=== PATIENT | male | born 1955 ===

== ENCOUNTER 2024-10-28 16:07 | Inpatient (IN) | payer BC, MEDICARE, MEDICAID ==
[~2024-10-28] VITALS: Ht 172.7 cm; Wt 78.0 kg
[2024-10-28 16:10] VITALS: BP 144/96
[2024-10-28] MEDS ORDERED: METOPROLOL (16:27)
[2024-10-28] MEDS: IV NORMAL SALINE 1000 ML BAG IV ONE (17:05)
[2024-10-28] MEDS: IV NS 1000 ML 1,000 ML IV ONE (17:06)
[2024-10-28] MEDS: MAGNESIUM SULFATE 2 GM in IV DEXTROSE 5% 100 ML IV ONE (17:07)
[2024-10-28] MEDS: ASPIRIN 81 MG TAB.CHEW PO ONE (17:07)
[2024-10-28 17:08] LABS: PLATELET COUNT (AUTO) 215 K/uL (152-348); RED BLOOD CELL COUNT(AUTO) 5.04 MIL/uL (4.06-5.63); RED CELL DISTRIBUTION WIDTH 12.3 % (12.1-16.2); WHITE BLOOD COUNT (AUTO) 5.6 K/uL (3.6-10.2)
[2024-10-28] MEDS ORDERED: MAGNESIUM SULFATE 1 GM/2 ML VIAL ONE (17:08)
[2024-10-28] MEDS ORDERED: ASPIRIN 81 MG TAB.CHEW ONE (17:08)
[2024-10-28] MEDS ORDERED: ENOXAPARIN SODIUM 80 MG/0.8 ML DISP.SYRIN SQ ONE (17:09)
[2024-10-28] MEDS: ENOXAPARIN SODIUM 30 MG/0.3 ML DISP.SYRIN SUBCUT ONE (17:17)
[2024-10-28 17:23] LABS: CREATININE 1.7 mg/dL (0.6-1.3); SODIUM SERUM 132 mmol/L (136-145); UREA NITROGEN, BLOOD 30 mg/dL (7-18)
[2024-10-28 17:27] LABS: ASPARTATE AMINOTRANSFERASE 16 U/L (15-37); TOTAL PROTEIN, SERUM 7.9 g/dL (6.4-8.2)
[2024-10-28] MEDS ORDERED: INSULIN REGULAR, HUMAN 1000 UNIT/10 ML VIAL ONE (21:26)
[2024-10-28] MEDS: INSULIN REGULAR, HUMAN 100 UNITS in IV NORMAL SALINE 100 ML IV ONE (21:44)
[2024-10-29] MEDS ORDERED: ACETAMINOPHEN 325 MG TABLET PO PRN (01:15)
[2024-10-29] MEDS ORDERED: REMEDY ESSENTIAL ZINC PASTE 113 GM TP PRN (01:15)
[2024-10-29] MEDS ORDERED: DEXTROSE 50% 50 ML DISP.SYRIN IV PRN (01:15)
[2024-10-29] MEDS ORDERED: ONDANSETRON 4 MG/2 ML VIAL IV PRN (01:15)
[2024-10-29] MEDS: ENOXAPARIN SODIUM 40 MG/0.4 ML DISP.SYRIN SQ SCH (02:13)
[2024-10-29 02:18] VITALS: BP 119/80; TEMP 97.6; O2SAT 97
[2024-10-29 04:13] VITALS: BP 122/78; TEMP 98; O2SAT 94
[2024-10-29 04:14] LABS: ABG BASE EXCESS -1.3 mmol/L (-2.0-3.0); ABG HCO3 23.1 mmol/L (21.0-28.0); ABG PCO2 38.0 mmHg (35.0-48.0); ABG PH 7.402 (7.350-7.450); ABG PO2 66.1 mmHg (83.0-108.0); ABG SITE LEFT RADIAL; ABG TOTAL HEMOGLOBIN 15.0 G/dL (13.5-17.5); AaDO2 93.2 mmHg; FIO2 21.0 %; FLOW, BLOOD GAS 0.00 L/min (0.00-30.00)
[2024-10-29 06:21] LABS: PLATELET COUNT (AUTO) 202 K/uL (152-348); RED BLOOD CELL COUNT(AUTO) 5.06 MIL/uL (4.06-5.63); RED CELL DISTRIBUTION WIDTH 12.3 % (12.1-16.2); WHITE BLOOD COUNT (AUTO) 6.9 K/uL (3.6-10.2)
[2024-10-29] MEDS: PANTOPRAZOLE SODIUM 40 MG TABLET.DR PO SCH (06:22)
[2024-10-29] MEDS: BLOOD SUGAR DIAGNOSTIC 1 EACH STRIP VI SCH (06:23)
[2024-10-29 07:08] LABS: CREATININE 1.6 mg/dL (0.6-1.3); SODIUM SERUM 134.0 mmol/L (136-145); UREA NITROGEN, BLOOD 27.0 mg/dL (7-18)
[2024-10-29 07:40] VITALS: BP 127/78; TEMP 98; O2SAT 94
[2024-10-29] MEDS: INSULIN REGULAR, HUMAN 1000 UNIT/10 ML VIAL SQ PRN (08:18)
[2024-10-29 11:07] LABS: *BILIRUBIN,URIN NEGATIVE (NEGATIVE); *CLARITY,URINE CLEAR (CLEAR); *COLOR,URINE YELLOW (YELLOW); *KETONES,URINE NEGATIVE (NEGATIVE); *PROTEIN,URINE TRACE (NEGATIVE); *UROBILINOGEN,URINE 0.2 E.U./dl (NORMAL); LEUKOCYTE ESTERASE ,URINE NEGATIVE (NEGATIVE); NITRITE, URINE NEGATIVE (NEGATIVE)
[2024-10-29 11:18] LABS: *CREATININE,URINE 77.0 mg/dL (30-125); *SODIUM RNDM,URINE 47.0 mmol/L (40-220); *URINE TOTAL PROTEIN RANDOM 24.9 mg/dL (<150/24HR)
[2024-10-29 11:27] LABS: *BLOOD, URINE TRACE (NEGATIVE); UGLUCOSE 3+ (NEGATIVE)
[2024-10-29] MEDS ORDERED: LISI-782 PO (11:33)
[2024-10-29] MEDS ORDERED: AMLO10TA59 PO (11:34)
[2024-10-29] MEDS ORDERED: METO-356 PO (11:35)
[2024-10-29] MEDS ORDERED: APIX5TAB PO (11:35)
[2024-10-29] MEDS ORDERED: ATOR80TA PO (11:36)
[2024-10-29 11:44] VITALS: BP 115/79; TEMP 97.9; O2SAT 98
[2024-10-29 15:59] VITALS: BP 131/70; TEMP 97.8; O2SAT 97
[2024-10-29] MEDS: APIXABAN 5 MG TABLET PO SCH (17:11)
[2024-10-29] MEDS: ATORVASTATIN 40 MG TABLET PO SCH (20:29)
[2024-10-30 00:27] VITALS: BP 114/79; TEMP 98.3; O2SAT 97
[2024-10-30 04:36] VITALS: BP 140/49; TEMP 97.6; O2SAT 96
[2024-10-30 06:45] LABS: PLATELET COUNT (AUTO) 222 K/uL (152-348); RED BLOOD CELL COUNT(AUTO) 5.28 MIL/uL (4.06-5.63); RED CELL DISTRIBUTION WIDTH 12.7 % (12.1-16.2); WHITE BLOOD COUNT (AUTO) 8.3 K/uL (3.6-10.2)
[2024-10-30 07:16] LABS: ASPARTATE AMINOTRANSFERASE 25.0 U/L (15-37); CREATININE 1.2 mg/dL (0.6-1.3); SODIUM SERUM 135.0 mmol/L (136-145); TOTAL PROTEIN, SERUM 7.0 g/dL (6.4-8.2); UREA NITROGEN, BLOOD 28.0 mg/dL (7-18)
[2024-10-30 07:37] LABS: CREATINE KINASE, TOTAL 108.0 U/L (39-308)
[2024-10-30 08:00] VITALS: BP 99/71; TEMP 98; O2SAT 93
[2024-10-30] MEDS: METOPROLOL SUCCINATE XL 25 MG TAB.SR.24H PO SCH (08:13)
[2024-10-30] MEDS ORDERED: ENOXAPARIN SODIUM 40 MG/0.4 ML DISP.SYRIN SQ SCH (09:00)
[2024-10-30 09:58] VITALS: BP 140/49
[2024-10-30] MEDS: METOPROLOL SUCCINATE XL 25 MG TAB.SR.24H PO ONE (09:58)
[2024-10-30] MEDS ORDERED: METO-357 PO (11:20)
[2024-10-30] MEDS ORDERED: GLIP5TAB13 PO (11:20)
[2024-10-30] MEDS ORDERED: ATOR40TA PO (11:20)
[2024-10-31 06:07] LABS: PTH, INTACT 13 pg/mL (15-65)
[2024-10-31] MEDS ORDERED: METOPROLOL SUCCINATE XL 50 MG TAB.SR.24H PO SCH (09:00)
[2024-10-31] MEDS ORDERED: METOPROLOL SUCCINATE XL 25 MG TAB.SR.24H PO SCH (09:00)
== END 2024-10-30 11:35 | disposition home or self-care (01) | DRG 637 ==
LOC: ER 16:07 → TELE3 10-29 00:30
PROVIDERS: ADMIT Internal Medicine; ATTEND Internal Medicine
DX: E11.00 Type 2 diabetes mellitus with hyperosmolarity without nonketotic hyperglycemic-hyperosmolar coma (NKHHC) (principal); J96.01 Acute respiratory failure with hypoxia; N17.0 Acute kidney failure with tubular necrosis; I48.20 Chronic atrial fibrillation, unspecified; E86.0 Dehydration; E78.5 Hyperlipidemia, unspecified; E11.65 Type 2 diabetes mellitus with hyperglycemia; N18.9 Chronic kidney disease, unspecified; Z79.01 Long term (current) use of anticoagulants; E66.9 Obesity, unspecified; Z68.26 Body mass index [BMI] 26.0-26.9, adult; I12.9 Hypertensive chronic kidney disease with stage 1 through stage 4 chronic kidney disease, or unspecified chronic kidney disease; E11.22 Type 2 diabetes mellitus with diabetic chronic kidney disease
CPT/HCPCS: 36415; 36600; 71045; 76770; 82803; 83735; 83970; 84100; 84155; 84165; 84300; 84443; 84484; 84681; 85025; A4606; A4663; G0378; J1650; J1815; J3475; J7040